=== PATIENT | female | born 1980 | race Caucasian/White ===

== ENCOUNTER 2018-05-02 16:34 | Emergency (ER) | payer OTHER, SELFPAY ==
--- NOTE | 2018-05-02 16:56 | ER ---
Nurse's Notes [facility] Name: Elsa Dash Age: 37 yrs Sex: Female : 1980 Arrival Date: 05/02/2018 Time: 16:36 Bed 25 Private MD: Diagnosis: Acute pharyngitis Presentation: 05/02 16:38 Presenting complaint: Patient states: i think i have strep throat, started yesterday, i tw2 can see swelling with white pockets. Transition of care: patient was not received from another setting of care. Onset of symptoms was May 02, 2018. Risk Assessment: Do you want to hurt yourself or someone else? Patient reports no desire to harm self or others. Initial Sepsis Screen: Does the patient meet any 2 criteria? No. Patient's initial sepsis screen is negative. Does the patient have a suspected source of infection? No. Patient's initial sepsis screen is negative. Care prior to arrival: None. 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 - Social history:: Smoking status: Patient/guardian denies using tobacco. - Ebola Screening: : Patient denies exposure to infectious person Patient denies travel to an Ebola-affected area in the 21 days before illness onset. Screenin:51 Abuse screen: Denies threats or abuse. Denies injuries from another. Nutritional ed1 screening: No deficits noted. Tuberculosis screening: No symptoms or risk factors identified. Fall Risk None identified. Assessment: 16:51 General: Appears uncomfortable, Behavior is calm, cooperative. Pain: Complains of pain ed1 in throat Pain does not radiate. Pain currently is 7 out of 10 on a pain scale. Quality of pain is described as burning, Pain began 1 day ago. Is continuous. Neuro: Level of Consciousness is awake, alert, obeys commands, Oriented to person, place, time, situation. Cardiovascular: Denies chest pain, Heart tones S1 S2 present. Respiratory: Airway is patent Respiratory effort is even, unlabored, Respiratory pattern is regular, symmetrical, Breath sounds are clear bilaterally. GI: No signs and/or symptoms were reported involving the gastrointestinal system. : No signs and/or symptoms were reported regarding the genitourinary system. EENT: Throat is reddened has enlarged tonsils bilaterally. Derm: Skin is intact, is healthy with good turgor, Skin is dry, Skin is normal, Skin temperature is warm. Musculoskeletal: Circulation, motion, and sensation intact. 16:55 Reassessment: I agree with previous assessment. hb 17:04 Reassessment: Patient appears in no apparent distress at this time. No changes from ed1 previously documented assessment. Patient and/or family updated on plan of care and expected duration. Pain level reassessed. Patient is alert, oriented x 3, equal unlabored respirations, skin warm/dry/pink. Vital Signs: 16:39 BP 144 / 77; Pulse 89; Resp 17; Temp 97.7(TE); Pulse Ox 98% on R/A; tw2 16:57 BP 133 / 92 RA Sitting (auto/reg); Pulse 77 MON; Resp 18 S; Pulse Ox 98% on R/A; jp3 17:04 BP 148 / 93; Pulse 86; Resp 17; Pulse Ox 100% on R/A; Pain 6/10; ed1 ED Course: 16:36 Patient arrived in ED. sb2 16:39 Triage completed. tw2 16:39 Arm band placed on. tw2 16:47 Strep Sent. tw2 16:50 Temitope Rachel LVN is Primary Nurse. ed1 16:51 Nithin Birch PA is PHCP. [facility] 16:51 Damian Pierre MD is Attending Physician. [facility] 16:51 Bed in low position. Call light in reach. Side rails up X 1. Warm blanket given. Pulse jp3 ox on. NIBP on. 16:58 Strep Sent. jp3 17:04 No provider procedures requiring assistance completed. Patient did not have IV access ed1 during this emergency room visit. Administered Medications: No medications were administered Outcome: 16:55 Discharge ordered by . [facility] 17:04 Discharged to home ambulatory. ed1 17:04 Condition: good 17:04 Discharge instructions given to patient, Instructed on discharge instructions, follow up and referral plans. medication usage, Demonstrated understanding of instructions, follow-up care, medications, Prescriptions given X 1. 17:05 Patient left the ED. ed1 Signatures: Nithin Birch PA PA jmm Riggs, Erika, COMMUNITY RESOURCE CONSULTANT COMMUNITY RESOURCE CONSULTANT ed1 Christy Armando RN RN Agnes Hightower RN RN tw2 Naomi Ayala sb2 Kleber Cook jp3
--- NOTE | 2018-05-02 16:56 | EDPHYS ---
Physician Documentation [facility] Name: Elsa Dash Age: 37 yrs Sex: Female : 1980 Arrival Date: 05/02/2018 Time: 16:36 Bed 25 Private MD: ED Physician Damian Pierre HPI: 05/02 16:54 This 37 yrs old Female presents to ER via Ambulatory with complaints of Sore jmm Throat. 16:54 The patient presents with sore throat. Onset: The symptoms/episode began/occurred jmm gradually, 1 day(s) ago. 16:54 Associated signs and symptoms: Pertinent positives: fever. jmm 16:54 Associated signs and symptoms: Pertinent negatives cough, diarrhea, headache. This is a jmm 37 year old female with a history of htn that presents to the ED with sore throat and fever beginning 1 day ago. . 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 - Social history:: Smoking status: Patient/guardian denies using tobacco. - Ebola Screening: : Patient denies exposure to infectious person Patient denies travel to an Ebola-affected area in the 21 days before illness onset. ROS: 16:54 Constitutional: Negative for fever, chills, and weight loss, Cardiovascular: Negative [facility] for chest pain, palpitations, and edema, Respiratory: Negative for shortness of breath, cough, wheezing, and pleuritic chest pain. 16:54 Abdomen/GI: Negative for abdominal pain, nausea, vomiting, diarrhea, and constipation, Back: Negative for injury and pain, MS/Extremity: Negative for injury and deformity. 16:54 Neuro: Negative for headache, weakness, numbness, tingling, and seizure. 16:54 ENT: Positive for sore throat. 16:54 Skin: Positive for rash. 16:54 All other systems are negative. Exam: 16:54 Head/Face: atraumatic. jmm 16:54 Constitutional: The patient appears in no acute distress, alert, awake. 16:54 ENT: TM's: are normal, Posterior pharynx: Uvula: normal, erythema, exudate, that is moderate, peritonsillar mass, is not appreciated. 16:54 Neck: Lymph nodes: lymphadenopathy is appreciated, anterior cervical nodes. 16:54 Cardiovascular: Rate: normal, Rhythm: regular, Pulses: no pulse deficits are appreciated. 16:54 Respiratory: the patient does not display signs of respiratory distress, Respirations: normal, Breath sounds: are clear throughout. 16:54 Abdomen/GI: Inspection: abdomen appears normal, Bowel sounds: normal, Palpation: soft, in all quadrants. 16:54 Skin: rash can be described as erythematous, on the chest. 16:54 Neuro: Orientation: is normal, Mentation: is normal, Memory: is normal. 16:54 Psych: Behavior/mood is pleasant, cooperative. Vital Signs: 16:39 BP 144 / 77; Pulse 89; Resp 17; Temp 97.7(TE); Pulse Ox 98% on R/A; tw2 16:57 BP 133 / 92 RA Sitting (auto/reg); Pulse 77 MON; Resp 18 S; Pulse Ox 98% on R/A; jp3 17:04 BP 148 / 93; Pulse 86; Resp 17; Pulse Ox 100% on R/A; Pain 6/10; ed1 MDM: 16:54 Patient medically screened. [facility] 16:55 Data reviewed: vital signs, nurses notes. Counseling: I had a detailed discussion with [facility] the patient and/or guardian regarding: the historical points, exam findings, and any diagnostic results supporting the discharge/admit diagnosis, the need for outpatient follow up, to return to the emergency department if symptoms worsen or persist or if there are any questions or concerns that arise at home. 05/02 16:39 Order name: Strep tw2 Administered Medications: No medications were administered Disposition: 18 16:55 Discharged to Home. Impression: Acute pharyngitis. - Condition is Stable. - Discharge Instructions: Pharyngitis. - Prescriptions for Amoxicillin 875 mg Oral Tablet - take 1 tablet by ORAL route every 12 hours for 10 days; 20 tablet. - Medication Reconciliation Form, Thank You Letter, Antibiotic Education, Prescription Opioid Use form. - Follow up: Private Physician; When: 2 - 3 days; Reason: Recheck today's complaints, Continuance of care, Re-evaluation by your physician. Addendum: 05/04/2018 15:36 Co-signature as Attending Physician, Damian Pierre MD. g s Signatures: Dispatcher [employer] EDMS Nithin Birch, KEN PA aparnam Temitope Rachel, SUB PRIOR SUB PRIOR ed1 Agnes Hightower, RN RN tw2 Damian Pierre MD MD Corrections: (The following items were deleted from the chart) 05/02 17:05 16:55 05/02/2018 16:55 Discharged to Home. Impression: Acute pharyngitis. Condition is ed1 Stable. Forms are Medication Reconciliation Form, Thank You Letter, Antibiotic Education, Prescription Opioid Use. Follow up: Private Physician; When: 2 - 3 days; Reason: Recheck today's complaints, Continuance of care, Re-evaluation by your physician. aleisha
== END 2018-05-02 17:05 | disposition home or self-care (01) ==
LOC: ER 16:34
DX: J02.9 Acute pharyngitis, unspecified (principal); I10 Essential (primary) hypertension; F41.9 Anxiety disorder, unspecified
CPT/HCPCS: 87081; 99283

== ENCOUNTER 2020-06-24 18:55 | Emergency (ER) | payer SELFPAY ==
[2020-06-24 19:29] LABS: Absolute Lymphocytes (CBC) 2.4 K/uL (0.7-4.9); Basophils % 0.9 % (0-1.3); Hematocrit 40.1 % (36.0-45.0); Lymphocytes % 27.9 % (15.3-44.8); RBC Red Blood Cell Count 4.51 M/uL (3.86-4.86)
[2020-06-24 19:30] LABS: Urine Blood TRACE (NEG); Urine Glucose NEGATIVE (NEG); Urine Protein 2+ (NEG); Urine Specific Gravity 1.015 (1.005-1.030)
[2020-06-24] MEDS ORDERED: MAGNE/ALUM HYDROXD 30 ML UCUP ONE ×2 (19:45→23:03)
[2020-06-24] MEDS ORDERED: LIDOCAINE VISCOUS 2% SOLN 15 ML UDC ONE ×2 (19:45→23:03)
[2020-06-24 19:51] LABS: Albumin 4.4 g/dL (3.4-5.0); Bilirubin Direct 0.1 mg/dL (0-0.2); Bilirubin Total 0.3 mg/dL (0.2-1.0); Protein, Total 8.6 g/dL (6.4-8.2)
[2020-06-24 20:08] LABS: Potassium 2.9 mmol/L (3.5-5.1)
[2020-06-24] MEDS ORDERED: POTASSIUM 25 MEQ EFFERV TAB ONE (20:22)
[2020-06-24] MEDS ORDERED: NA CHLORIDE 0.9% 1,000 ML ONE (20:22)
--- NOTE | 2020-06-24 22:12 | EDPHYS ---
Physician Documentation [facility] Name: Elsa Dash Age: 39 yrs Sex: Female : 1980 Arrival Date: 06/24/2020 Time: 18:56 Bed 8 Private MD: ED Physician Martin Sterling HPI: 06/24 19:27 This 39 yrs old Female presents to ER via Ambulatory with complaints of tw4 Epigastric Pain. 19:27 The patient presents with abdominal pain. Onset: The symptoms/episode began/occurred 2 tw4 week(s) ago. The symptoms do not radiate. Associated signs and symptoms: none. The symptoms are described as sharp. Modifying factors: The symptoms are alleviated by nothing, the symptoms are aggravated by nothing. The patient has not experienced similar symptoms in the past. 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 - Social history:: Smoking status: Patient denies any tobacco usage or history of. ROS: 19:27 Constitutional: Negative for fever, chills, and weight loss, Eyes: Negative for injury, tw4 pain, redness, and discharge, Cardiovascular: Negative for chest pain, palpitations, and edema, Respiratory: Negative for shortness of breath, cough, wheezing, and pleuritic chest pain, Back: Negative for injury and pain, MS/Extremity: Negative for injury and deformity, Skin: Negative for injury, rash, and discoloration. 19:27 Abdomen/GI: Positive for abdominal pain, Negative for nausea and vomiting, nausea, vomiting, and diarrhea, nausea, abdominal cramps, abdominal distension, anorexia, dysphagia, hematemesis, black/tarry stool, rectal pain. Exam: 19:27 Constitutional: This is a well developed, well nourished patient who is awake, alert, tw4 and in no acute distress. Head/Face: Normocephalic, atraumatic. Chest/axilla: Normal chest wall appearance and motion. Nontender with no deformity. No lesions are appreciated. Cardiovascular: Regular rate and rhythm with a normal S1 and S2. No gallops, murmurs, or rubs. Normal PMI, no JVD. No pulse deficits. Respiratory: Lungs have equal breath sounds bilaterally, clear to auscultation and percussion. No rales, rhonchi or wheezes noted. No increased work of breathing, no retractions or nasal flaring. 19:27 Skin: Warm, dry with normal turgor. Normal color with no rashes, no lesions, and no evidence of cellulitis. MS/ Extremity: Pulses equal, no cyanosis. Neurovascular intact. Full, normal range of motion. 19:27 Abdomen/GI: Inspection: abdomen appears normal, Bowel sounds: normal, Palpation: moderate abdominal tenderness. Vital Signs: 19:02 BP 163 / 115; Pulse 104; Resp 18 S; Temp 98.5(O); Pulse Ox 99% on R/A; Weight 106.14 kg aa5 (R); Height 5 ft. 8 in. (172.72 cm) (R); Pain 6/10; 20:04 BP 171 / 110; Pulse 84; Resp 18; Pulse Ox 99% on R/A; ll2 21:00 BP 175 / 105; Pulse 82; Resp 16; Pulse Ox 99% ; rr5 22:00 BP 166 / 96; Pulse 76; Resp 18; Pulse Ox 98% ; rr5 23:00 BP 162 / 85; Pulse 70; Resp 16; Pulse Ox 99% ; rr5 19:02 Body Mass Index 35.58 (106.14 kg, 172.72 cm) aa5 MDM: 19:04 Patient medically screened. tw4 22:10 Data reviewed: vital signs, nurses notes. Data interpreted: Pulse oximetry: tw4 Interpretation: normal. Counseling: I had a detailed discussion with the patient and/or guardian regarding: the historical points, exam findings, and any diagnostic results supporting the discharge/admit diagnosis, lab results. Medication response: GI Cocktail relieved the patient's pain. The symptoms have resolved. Response to treatment: and as a result, I will discharge patient. Special discussion: Based on the patient's Hx, exam, and Dx evaluation, there is no indication for emergent surgery or inpatient Tx. It is understood by the patient/guardian that if the Sx's persist or worsen they need to return immediately for re-evaluation. I discussed with the patient/guardian in detail that at this point there is no indication for admission to the hospital. It is understood, however, that if the symptoms persist or worsen the patient needs to return immediately for re-evaluation. 06/24 19:05 Order name: Basic Metabolic Panel; Complete Time: 20:15 [facility] 06/24 20:15 Interpretation: Normal except: K 2.9; GLUC 144; GFR 67. tw4 06/24 19:05 Order name: CBC with Diff; Complete Time: 20:15 [facility] 06/24 20:15 Interpretation: Normal except: MCV 88.9. tw06/24 19:05 Order name: Hepatic Function; Complete Time: 20:15 [facility] 06/24 20:15 Interpretation: Normal except: ALK 122; TP 8.6; GLOB 4.2; A/G 1.0. [facility] 06/24 19:05 Order name: Lipase; Complete Time: 20:15 [facility] 06/24 20:16 Interpretation: Within normal limits: LIP 103. tw4 06/24 19:26 Order name: Urine Dipstick--Ancillary (enter results); Complete Time: 20:15 [facility] 06/24 20:15 Interpretation: Normal except: UBLD TRACE; UPROT 2+. 06/24 19:26 Order name: Urine --Ancillary (enter results); Complete Time: 20:15 [facility] 06/24 19:05 Order name: IV Saline Lock; Complete Time: 19:28 [facility] 06/24 19:05 Order name: Labs collected and sent; Complete Time: 19:28 [facility] 06/24 19:28 Order name: Urine Dipstick-Ancillary (obtain specimen); Complete Time: 19:28 5 06/24 19:28 Order name: Urine Test (obtain specimen); Complete Time: 19:28 rr5 Administered Medications: 19:47 Drug: GI Cocktail without - (Maalox Suspension 30 ml, Lidocaine Liquid 2 % 15 rr5 ml) Route: PO; 22:45 Follow up: Response: No adverse reaction rr5 20:17 Drug: Potassium Effervescent Tablet 50 mEq Route: PO; rr5 22:45 Follow up: Response: No adverse reaction rr5 20:17 Drug: NS 0.9% 1000 ml Route: IV; Rate: 1 bolus; Site: right antecubital; rr5 21:15 Follow up: Response: No adverse reaction; IV Status: Completed infusion; IV Intake: rr5 1000ml Disposition: 06/24/20 22:11 Discharged to Home. Impression: Gastritis, unspecified, without bleeding, Hypokalemia. - Condition is Stable. - Discharge Instructions: Gastritis, Adult, Hypokalemia. - Prescriptions for Protonix 40 mg Oral Tablet - take 1 tablet by ORAL route once daily; 30 tablet. - Medication Reconciliation Form, Thank You Letter, Antibiotic Education, Prescription Opioid Use form. - Follow up: Private Physician; When: Upon discharge from the Emergency Department; Reason: Recheck today's complaints, Continuance of care, Re-evaluation by your physician. - Problem is new. - Symptoms have improved. Signatures: Dispatcher [employer] EDMS Divina Busby RN RN aa5 Martin Sterling MD MD tw4 Ole West RN RN rr5 Aleida Moss RN RN ll2 Corrections: (The following items were deleted from the chart) 19:05 19:02 PSHx: None; aa5 aa5 23:07 19:02 Home Meds: amlodipine 10 mg tab 1 tab once daily; aa5 ll2 23:07 19:02 Home Meds: alprazolam 1 mg oral tab twice a day; aa5 ll2 23:07 19:02 Home Meds: Adipex-P oral oral; 5 ll2 23:07 19:02 PMHx: Anxiety; aa5 ll2 23:07 19:02 PMHx: Hypertension; aa5 ll2 23:07 19:05 PSHx: Right ovary removed; aa5 ll2 23:08 22:11 06/24/2020 22:11 Discharged to Home. Impression: Gastritis, unspecified, without ll2 bleeding; Hypokalemia. Condition is Stable. Forms are Medication Reconciliation Form, Thank You Letter, Antibiotic Education, Prescription Opioid Use. Follow up: Private Physician; When: Upon discharge from the Emergency Department; Reason: Recheck today's complaints, Continuance of care, Re-evaluation by your physician. Problem is new. Symptoms have improved. tw4
--- NOTE | 2020-06-24 22:12 | ER ---
Nurse's Notes [facility] Name: Elsa Dash Age: 39 yrs Sex: Female : 1980 Arrival Date: 06/24/2020 Time: 18:56 Bed 8 Private MD: Diagnosis: Gastritis, unspecified, without bleeding;Hypokalemia Presentation: 06/24 19:02 Chief complaint: Patient states: upper abd pain that began 1 week ago. Pt states "I was aa5 having diarrhea 1 week ago but not anymore". Pt denies vomiting. Coronavirus screen: Client denies travel out of the [place] in the last 14 days. At this time, the client does not indicate any symptoms associated with coronavirus-19. Ebola Screen: Patient negative for fever greater than or equal to 101.5 degrees Fahrenheit, and additional compatible Ebola Virus Disease symptoms. Initial Sepsis Screen: Does the patient meet any 2 criteria? No. Patient's initial sepsis screen is negative. Does the patient have a suspected source of infection? No. Patient's initial sepsis screen is negative. Risk Assessment: Do you want to hurt yourself or someone else? Patient reports no desire to harm self or others. Onset of symptoms was 2020. 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 - Social history:: Smoking status: Patient denies any tobacco usage or history of. Screenin:29 Abuse screen: Denies threats or abuse. Denies injuries from another. Nutritional rr5 screening: No deficits noted. Tuberculosis screening: No symptoms or risk factors identified. Fall Risk IV access (20 points). Total [place] Fall Scale indicates No Risk (0-24 pts). Assessment: 19:30 General: Appears in no apparent distress. uncomfortable, Behavior is calm, cooperative, rr5 appropriate for age. Pain: Complains of pain in epigastric area Pain currently is 8 out of 10 on a pain scale. Quality of pain is described as aching, Pain began gradually, Is intermittent. Neuro: Level of Consciousness is awake, alert, obeys commands, Oriented to person, place, time, situation. Cardiovascular: Capillary refill < 3 seconds Patient's skin is warm and dry. Respiratory: Airway is patent Respiratory effort is even, unlabored, Respiratory pattern is regular, agonal. GI: Abdomen is round Reports upper abdominal pain, diarrhea. : No signs and/or symptoms were reported regarding the genitourinary system. EENT: No signs and/or symptoms were reported regarding the EENT system. Derm: Skin is intact, is healthy with good turgor, Skin temperature is warm. Musculoskeletal: Circulation, motion, and sensation intact. Capillary refill < 3 seconds. 20:15 Reassessment: Patient appears in no apparent distress at this time. K 2.9 laboratory rr5 staff called, ED provider aware with order made and carried out. 21:10 Reassessment: Patient appears in no apparent distress at this time. Patient and/or rr5 family updated on plan of care and expected duration. Pain level reassessed. Patient is alert, oriented x 3, equal unlabored respirations, skin warm/dry/pink. 22:00 Reassessment: Patient appears in no apparent distress at this time. Patient is alert, rr5 oriented x 3, equal unlabored respirations, skin warm/dry/pink. 23:00 Reassessment: Patient appears in no apparent distress at this time. Patient is alert, rr5 oriented x 3, equal unlabored respirations, skin warm/dry/pink. discharge instruction given and explained without complaints made. Vital Signs: 19:02 BP 163 / 115; Pulse 104; Resp 18 S; Temp 98.5(O); Pulse Ox 99% on R/A; Weight 106.14 kg aa5 (R); Height 5 ft. 8 in. (172.72 cm) (R); Pain 6/10; 20:04 BP 171 / 110; Pulse 84; Resp 18; Pulse Ox 99% on R/A; ll2 21:00 BP 175 / 105; Pulse 82; Resp 16; Pulse Ox 99% ; rr5 22:00 BP 166 / 96; Pulse 76; Resp 18; Pulse Ox 98% ; rr5 23:00 BP 162 / 85; Pulse 70; Resp 16; Pulse Ox 99% ; rr5 19:02 Body Mass Index 35.58 (106.14 kg, 172.72 cm) aa5 ED Course: 18:56 Patient arrived in ED. as 19:00 Arm band placed on. aa5 19:04 Triage completed. aa5 19:04 Martin Sterling MD is Attending Physician. tw4 19:05 Ole West, RN is Primary Nurse. rr5 19:20 Inserted saline lock: 20 gauge in right antecubital area, using aseptic technique. rr5 Blood collected. 19:29 Patient has correct armband on for positive identification. Bed in low position. Call rr5 light in reach. Pulse ox on. NIBP on. 19:30 Urine collected: clean catch specimen, clear. rr5 23:07 No provider procedures requiring assistance completed. IV discontinued, intact, ll2 bleeding controlled, No redness/swelling at site. Pressure dressing applied. Administered Medications: 19:47 Drug: GI Cocktail without - (Maalox Suspension 30 ml, Lidocaine Liquid 2 % 15 rr5 ml) Route: PO; 22:45 Follow up: Response: No adverse reaction rr5 20:17 Drug: Potassium Effervescent Tablet 50 mEq Route: PO; rr5 22:45 Follow up: Response: No adverse reaction rr5 20:17 Drug: NS 0.9% 1000 ml Route: IV; Rate: 1 bolus; Site: right antecubital; rr5 21:15 Follow up: Response: No adverse reaction; IV Status: Completed infusion; IV Intake: rr5 1000ml Intake: 21:15 IV: 1000ml; Total: 1000ml. rr5 Outcome: 22:11 Discharge ordered by . tw4 23:07 Discharged to home ambulatory. ll2 23:07 Condition: stable 23:07 Discharge instructions given to patient, Instructed on discharge instructions, follow up and referral plans. medication usage, Demonstrated understanding of instructions, follow-up care, medications, Prescriptions given X 1. 23:08 Patient left the ED. ll2 Signatures: Cecily Rae Audri, RN RN aa5 Martin Sterling MD MD [facility] Ole West, RN RN rr5 Aleida Moss RN RN ll2 Corrections: (The following items were deleted from the chart) 19: 19:02 PSHx: None; [place] [id number] 19:02 Home Meds: amlodipine 10 mg tab 1 tab once daily; [place] [id number] 19:02 Home Meds: alprazolam 1 mg oral tab twice a day; [place] [id number] 19:02 Home Meds: Adipex-P oral oral; [place] [id number] 19:02 PMHx: Anxiety; [place] [id number] 19:02 PMHx: Hypertension; [place] [id number] 19:05 PSHx: Right ovary removed; [facility]
[2020-06-24] MEDS ORDERED: PANTOPRAZOLE 40 MG INJ ONE (23:03)
[2020-06-24 23:17] VITALS: TEMP 98.5; O2SAT 99
[2020-06-24 23:18] VITALS: BP 171/110
== END 2020-06-24 23:08 | disposition home or self-care (01) ==
LOC: ER 18:55
DX: K29.70 Gastritis, unspecified, without bleeding (principal); E87.6 Hypokalemia; I10 Essential (primary) hypertension; F41.9 Anxiety disorder, unspecified
CPT/HCPCS: 36415; 80048; 80076; 81003; 81025; 83690; 85025; 96360; 99284; C9113; J7030

== ENCOUNTER → 2023-11-26 | Emergency (ER) | payer OTHER, SELFPAY ==
[~2023-11-26] MED LIST: ACETAMINOPHEN 500 MG TAB ONE; DIAZEPAM 5 MG TABLET ONE; KETOROLAC 30 MG/ML INJ ONE; LIDOCAINE 4% PATCH ONE; predniSONE 20 MG TAB ONE
--- NOTE | 2023-11-26 15:48 | RAD REPORT ---
EXAM DESCRIPTION: CTSpine Lumbar Wo Con11/26/2023 3:25 pm CLINICAL HISTORY: Difficulty walking. Back pain COMPARISON: None TECHNIQUE: Computed axial tomography lumbar spine was obtained with coronal and sagittal reconstruct ion. All CT scans are performed using dose optimization technique as appropriate and may include automated exposure control or mA/KV adjustment according to patient size. FINDINGS: No fracture is seen. No dislocation is noted. Equivocal small left lateral disc herniations L2-3 and L4-5. Disc bulge L5-S1. No high-grade central/foraminal stenosis visualized Tiny renal calculi IMPRESSION: Negative for a lumbar fracture. No high-grade central/foraminal stenosis visualize Equivocal small left lateral disc herniations L2-3 and L4-5 If patient's symptoms persist MRI could be obtained for further evaluation
--- NOTE | 2023-11-26 17:06 | ER ---
Nurse's Notes [facility] Name: Elsa Dash Age: 43 yrs Sex: Female : 1980 Arrival Date: 11/26/2023 Time: 14:39 Bed 11 Private MD: Diagnosis: Sciatica Presentation: 11/25 15:05 Coronavirus screen: Vaccine status: Patient reports receiving the 2nd dose of the covid kd3 vaccine. Ebola Screen: No symptoms or risks identified at this time. 15:05 Method Of Arrival: Wheelchair kd3 15:05 Initial Sepsis Screen: Does the patient meet any 2 criteria? No. Patient's initial kd3 sepsis screen is negative. Does the patient have a suspected source of infection? No. Patient's initial sepsis screen is negative. Risk Assessment: Do you want to hurt yourself or someone else? Patient reports no desire to harm self or others. Onset of symptoms. 15:06 Chief complaint: Patient states: I woke up yesterday morning and i could barely walk. I kd3 have had a tailbone fracture in the past. It hurts right in my tailbone/ back area. I can barely walk due to the pain. When i sit still, it doesn't hurt much. The only thing i can think of that might have hurt it was walking my dog. The dog took off and jerked me on the leash but i didn't feel any pain at the exact moment. 15:06 Acuity: YAHIR 4 kd3 Triage Assessment: 15:06 General: Appears uncomfortable, Behavior is calm, cooperative. Pain: Complains of pain kd3 in sacrum, left low back and right low back. 15:06 Neuro: Level of Consciousness is awake, alert, obeys commands, Oriented to person, kd3 place, time, situation. Musculoskeletal: Circulation, motion, and sensation intact. Historical: - Allergies: 15:06 No Known Allergies; kd3 - PMHx: 15:06 Anxiety; Hypertension; kd3 - Immunization history:: Adult Immunizations up to date. - Social history:: Smoking status: Reported history of juuling and/or vaping. Screenin:15 [facility] ED Fall Risk Assessment (Adult) History of falling in the last 3 months, ph including since admission No falls in past 3 months (0 pts) Confusion or Disorientation No (0 pts) Intoxicated or Sedated No (0 pts) Impaired Gait No (0 pts) Mobility Assist Device Used No (0 pt) Altered Elimination No (0 pt). Abuse screen: Denies threats or abuse. Denies injuries from another. Nutritional screening: No deficits noted. Tuberculosis screening: No symptoms or risk factors identified. Assessment: 17:15 General: Appears in no apparent distress. uncomfortable, Behavior is calm, cooperative. ph Pain: Complains of pain in back Pain radiates to right low back and left low back. Neuro: Level of Consciousness is awake, alert, obeys commands, Oriented to person, place, time, situation. Cardiovascular: Capillary refill < 3 seconds in bilateral fingers Patient's skin is warm and dry. Respiratory: Airway is patent Respiratory effort is even, unlabored, Respiratory pattern is regular, symmetrical. Musculoskeletal: Reports pain in left low back and sacrum and right low back. Vital Signs: 15:04 BP 165 / 109; Pulse 79; Resp 16; Temp 98.2(O); Pulse Ox 95% ; Weight 101.6 kg; Height 5 kd3 ft. 8 in. ; Pain 10/10; 17:30 BP 141 / 89; Pulse 72; Resp 18; Pulse Ox 98% on R/A; ph 15:04 Body Mass Index 34.06 (101.60 kg, 172.72 cm) kd3 15:04 Pain Scale: Adult kd3 ED Course: 14:41 Patient arrived in ED. ra3 14:42 Ben Grubbs MD is Attending Physician. ec2 15:08 Triage completed. kd3 15:09 Arm band placed on right wrist. kd3 15:26 CT Lumbar Spine Wo Con In Process Unspecified. EDMS 17:00 Patient has correct armband on for positive identification. Door closed. Noise ph minimized. 17:26 Blanca Torres, RN is Primary Nurse. ph 17:38 No provider procedures requiring assistance completed. Patient did not have IV access ph during this emergency room visit. Administered Medications: 16:46 Drug: Ketorolac IM 30 mg IM once Route: IM; Site: right deltoid; as6 17:00 Follow up: Response: No adverse reaction ph 16:46 Drug: Lidoderm Topical Patch 5 % (700 mg/patch) 1 patches Topical once; leave on for 12 as6 hours; cover most painful area; may cut into smaller pieces Route: Topical; Site: affected area; 17:00 Follow up: Response: No adverse reaction ph 16:46 Drug: Acetaminophen PO 1000 mg PO once Route: PO; as6 17:00 Follow up: Response: No adverse reaction ph 16:46 Drug: Diazepam PO 10 mg PO once Route: PO; as6 19:06 Follow up: Response: No adverse reaction ph 16:46 Drug: predniSONE PO 40 mg PO once Route: PO; as6 19:06 Follow up: Response: No adverse reaction ph Medication: 19:04 VIS not applicable for this client. ph Outcome: 17:05 Discharge ordered by . suzie 17:38 Patient left the ED. ph 17:38 Discharged to home ambulatory, with family, ph 17:38 Condition: good 17:38 Discharge instructions given to patient, family, Instructed on discharge instructions, follow up and referral plans. medication usage, Demonstrated understanding of instructions, follow-up care, medications, Prescriptions given X 2, Signatures: Dispatcher [employer] Blanca Pacheco RN RN Dorian Marie RN RN as6 Mariposa Savage RN RN kd3 Ben Grubbs MD MD ec2 Patricia Ritchie ra3
--- NOTE | 2023-11-26 17:06 | EDPHYS ---
Physician Documentation [facility] Name: Elsa Dash Age: 43 yrs Sex: Female : 1980 Arrival Date: 11/26/2023 Time: 14:39 Bed 11 Private MD: ED Physician Ben Grubbs HPI: 11/25 15:12 This 43 yrs old Female presents to ER via Wheelchair with complaints of Low ec2 Back Pain, Trouble Walking. 15:12 Patient arrives today for evaluation of low back pain. Patient complaining of 2 days of ec2 low back pain, states that the pain radiates into the right buttock. Patient reports no falls or injuries or trauma, reports no history of previous tailbone injury. Patient reports no saddle anesthesia, no urinary retention or incontinence, no bowel issues. Patient reports pain with movement. Has taken Tylenol with minimal alleviation in symptoms.. Historical: - Allergies: 15:06 No Known Allergies; kd3 - PMHx: 15:06 Anxiety; Hypertension; kd3 - Immunization history:: Adult Immunizations up to date. - Social history:: Smoking status: Reported history of juuling and/or vaping. ROS: 15:12 Constitutional: as per hpi ec2 Exam: 15:12 Constitutional: GEN: NAD Head: atraumatic Eyes: EOMI Ears: External ears are ec2 normal. CV: regular rate LUNGS: no respiratory distress ABD: non-distended SKIN: no evidence of rashes MSK: no evidence of trauma, no C/T spine deformities or TTP. L-spine with right low TTP, no deformities or crepitus appreciated. Positive straight leg raise test on the right lower extremity. NEURO: moves all extremities equally Vital Signs: 15:04 BP 165 / 109; Pulse 79; Resp 16; Temp 98.2(O); Pulse Ox 95% ; Weight 101.6 kg; Height 5 kd3 ft. 8 in. ; Pain 10/10; 17:30 BP 141 / 89; Pulse 72; Resp 18; Pulse Ox 98% on R/A; ph 15:04 Body Mass Index 34.06 (101.60 kg, 172.72 cm) kd3 15:04 Pain Scale: Adult kd3 MDM: 15:10 Patient medically screened. ec2 15:12 Data reviewed: vital signs. ED course: Patient arrives today for evaluation of right ec2 low back pain. Examination remarkable for MSK findings as noted above. Will obtain CT of the L-spine, treat the patient's symptoms and reassess. Currently suspect sciatica, doubt bony fracture, doubt spinal cord pathology. Will defer any more advanced imaging such as MRI. . 15:58 ED course: CT of the L-spine shows herniated disc, no bony fracture, no significant ec2 spinal cord pathology. Will proceed with sciatica management and have her follow with primary care doctor. . 11/25 15:12 Order name: CT Lumbar Spine Wo Con; Complete Time: 15:53 ec2 Administered Medications: 16:46 Drug: Ketorolac IM 30 mg IM once Route: IM; Site: right deltoid; as6 17:00 Follow up: Response: No adverse reaction ph 16:46 Drug: Lidoderm Topical Patch 5 % (700 mg/patch) 1 patches Topical once; leave on for 12 as6 hours; cover most painful area; may cut into smaller pieces Route: Topical; Site: affected area; 17:00 Follow up: Response: No adverse reaction ph 16:46 Drug: Acetaminophen PO 1000 mg PO once Route: PO; as6 17:00 Follow up: Response: No adverse reaction ph 16:46 Drug: Diazepam PO 10 mg PO once Route: PO; as6 19:06 Follow up: Response: No adverse reaction ph 16:46 Drug: predniSONE PO 40 mg PO once Route: PO; as6 19:06 Follow up: Response: No adverse reaction ph Disposition Summary: 11/26/23 17:05 Discharge Ordered Notes: Location: Home ec2 Condition: Stable ec2 Diagnosis - Sciatica ec2 Followup: ec2 - With: Private Physician - When: - Reason: Re-evaluation by your physician Discharge Instructions: - Discharge Summary Sheet ec2 - Sciatica, [id number] ec2 Forms: - Work release form ph - Medication Reconciliation Form ec2 - Thank You Letter ec2 - Antibiotic Education ec2 - Prescription Opioid Use ec2 - Patient Portal Instructions ec2 - Leadership Thank You Letter ec2 Prescriptions: - Prednisone 20 mg Oral Tablet - take 1 tablet ORAL route once daily for 5 days; 5 tablet; Refills: 0, Product ec2 Selection Permitted - methocarbamol 500 mg Oral tablet - take 2 tablets ORAL route 4 times per day; 30 tablet; Refills: 0, Product ec2 Selection Permitted Signatures: Dispatcher [employer] Dorian Fatima RN RN as6 Mariposa Savage RN RN kd3 Ben Grubbs MD MD ec2 Blanca Torres RN ph
[2023-11-26 18:16] VITALS: BP 165/109; TEMP 98.2; O2SAT 95
== END ==
LOC: ER 14:39
DX: M54.31 Sciatica, right side (principal)
CPT/HCPCS: 72131; J7512; J2001; 96372; 99284

== ENCOUNTER 2025-06-20 09:28 | Emergency (ER) | payer OTHER ==
[2025-06-20] MEDS ORDERED: ONDANSETRON 4 MG/2 ML VIAL ONE (10:04)
[2025-06-20] MEDS ORDERED: MORPHINE 4 MG/ML SYR ONE (10:05)
[2025-06-20] MEDS ORDERED: NA CHLORIDE 0.9% 1,000 ML ONE (10:05)
[2025-06-20 10:06] LABS: Absolute Lymphocytes (CBC) 1.7 K/uL (0.7-4.9); Hematocrit 39.9 % (36.0-45.0); Hemoglobin 13.4 g/dL (12.0-15.0); MCH 27.9 pg (27.0-35.0); MCHC 33.5 g/dL (32.0-36.0); MCV 83.2 fL (80-100); MPV 9.5 fL (7.6-11.3); Nucleated RBC Absolute Count 0.0 (0-0); Nucleated Red Blood Cells % 0.1 % (0-0); RBC Red Blood Cell Count 4.80 M/uL (3.86-4.86); White Blood Count 7.60 thou/uL (4.3-10.9)
[2025-06-20 10:29] LABS: ALT/SGPT 119.0 U/L (13-56); AST/SGOT 77.0 U/L (15-37); Albumin 3.7 g/dL (3.4-5.0); Albumin/Globulin Ratio 0.9 (1.1-1.8); Alkaline Phosphatase 113.0 U/L (45-117); Anion Gap 10.7 mEq/L (5.0-15.0); BUN Blood Urea Nitrogen 19.0 mg/dL (7-18); Globulin 4.1 g/dL (2.3-3.5); Glucose Level 138.0 mg/dL (74-106); Lipase 26.0 U/L (13-75); Potassium 3.7 mEq/L (3.5-5.1)
[2025-06-20 10:39] LABS: Urine Culture Reflex Order NOT NEEDED; Urine Microscopic Reflex YN ORDER UMIC
--- NOTE | 2025-06-20 11:22 | RAD REPORT ---
EXAMINATION: CT ABDOMEN AND PELVIS WITH CONTRAST CLINICAL INDICATION: Abdominal pain TECHNIQUE: CT abdomen and pelvis was performed, after the administration of 100 cc Isovue-300.. Sagit heike and coronal reconstructions were obtained. One or more of the following dose reduction techniques were used: Automated exposure control, adjustment of the mA and kV according to patient si ze, and iterative reconstruction. Unless otherwise specified, incidental findings do not require dedicated imaging follow-up. [id number]. Oral contrast was not given which limits evaluation of bowel and appendix. COMPARISON: .2013 FINDINGS: Mild hepatomegaly. Fatty liver. Spleen, pancreas, adrenals and left kidney unremarkable. Tiny bilateral renal calculi. Minimal left hydronephrosis. 1.5 cm simple appearing right renal cyst. No follow-up recommended. Normal appendix. No adnexal mass. No evidence of diverticulitis. : IMPRESSION: Mild hepatomegaly with fatty infiltration Tiny nonobstructing renal calculi Minimal left hydronephrosis. An obstructing ureteral calculus is not visualized.
--- NOTE | 2025-06-20 11:58 | ER ---
Nurse's Notes [facility] Name: Elsa Dash Age: 44 yrs Sex: Female : 1980 Arrival Date: 06/20/2025 Time: 09:28 Bed 19 Private MD: Diagnosis: Upper abdominal pain, unspecified Presentation: 06/20 09:40 Chief complaint: Patient states: abd pain started yesterday , pain radiates to the left iw side and suprapubic area. Coronavirus screen: At this time, the client does not indicate any symptoms associated with coronavirus-19. Ebola Screen: No symptoms or risks identified at this time. Initial Sepsis Screen: Does the patient meet any 2 criteria? No. Patient's initial sepsis screen is negative. Does the patient have a suspected source of infection? No. Patient's initial sepsis screen is negative. Risk Assessment: Do you want to hurt yourself or someone else? Patient reports no desire to harm self or others. Onset of symptoms was June 19, 2025. 09:40 Method Of Arrival: Ambulatory iw 09:40 Acuity: YAHIR 3 iw Historical: - Allergies: 09:41 No Known Allergies; iw - PMHx: 09:41 Anxiety; Hypertension; GERD; iw - Immunization history:: Adult Immunizations unknown. - Infectious Disease History:: Denies. - Social history:: Smoking status: unknown. Screenin:13 [facility] ED Fall Risk Assessment (Adult) History of falling in the last 3 months, db including since admission No falls in past 3 months (0 pts) Confusion or Disorientation No (0 pts) Intoxicated or Sedated No (0 pts) Impaired Gait No (0 pts) Mobility Assist Device Used No (0 pt) Altered Elimination No (0 pt) Score/Fall Risk Level 0 - 2 = Low Risk Oriented to surroundings, Maintained a safe environment. Abuse screen: Denies threats or abuse. Denies injuries from another. Nutritional screening: No deficits noted. Tuberculosis screening: No symptoms or risk factors identified. Assessment: 09:38 Reassessment: Patient appears in no apparent distress at this time. Patient and/or db family updated on plan of care and expected duration. Pain level reassessed. Patient is alert, oriented x 3, equal unlabored respirations, skin warm/dry/pink. General: Appears in no apparent distress. comfortable, Behavior is calm, cooperative. Pain: Complains of pain in abdomen. Neuro: Level of Consciousness is awake, alert, obeys commands, Oriented to person, place, time, situation. Respiratory: Airway is patent Respiratory effort is even, unlabored, Respiratory pattern is regular, symmetrical. 11:31 Reassessment: PT AMBULATORY TO RESTROOM. db 12:13 Reassessment: Patient appears in no apparent distress at this time. Patient and/or db family updated on plan of care and expected duration. Pain level reassessed. Patient is alert, oriented x 3, equal unlabored respirations, skin warm/dry/pink. Patient states feeling better. Patient states symptoms have improved. Vital Signs: 09:40 Pulse 81; Resp 18; Pulse Ox 96% on R/A; iw 10:30 BP 197 / 101; Pulse 81; Resp 16; Temp 98; Pulse Ox 98% ; db 11:40 BP 171 / 101; Pulse 87; Resp 16; Pulse Ox 97% on R/A; db 12:00 BP 164 / 95; Pulse 86; Resp 16; Pulse Ox 95% ; db ED Course: 09:31 Patient arrived in ED. ts1 09:32 Jduith Lira PA-C is PHCP. sb4 09:32 Anthony Scott MD is Attending Physician. sb4 09:38 Miguelina Zaragoza, RN is Primary Nurse. db 09:41 Triage completed. iw 09:41 Arm band placed on. iw 10:00 Initial lab(s) drawn, by me, sent to lab. Missed attempt(s): 20 gauge in right db antecubital area. Bleeding controlled, band aid applied, catheter tip intact. 10:33 Patient has correct armband on for positive identification. Bed in low position. Call db light in reach. Side rails up X 1. 10:59 CT Abd/Pelvis - IV Contrast Only In Process Unspecified. EDMS 11:57 Vitaliy Montes MD is Referral Physician. sb4 12:13 Provided Education on: DISCHARGE . Pulse ox on. NIBP on. db 12:13 No provider procedures requiring assistance completed. IV discontinued, intact, db bleeding controlled, No redness/swelling at site. Administered Medications: 10:15 Drug: Ondansetron IVP 4 mg IVP once; over 2 minutes Route: IVP; Site: left antecubital; db 12:15 Follow up: Response: No adverse reaction db 10:15 Drug: morphine IVP or IV 4 mg IVP once over 4 mins Route: IVP; Infused Over: 4 mins; db Site: left antecubital; 12:15 Follow up: Response: No adverse reaction db 10:15 Drug: NS 0.9% IV 1000 ml IV at 1 bolus Per protocol; to be given as a bolus over 60 db minutes Route: IV; Rate: 1 bolus; Site: left antecubital; 12:15 Follow up: Response: No adverse reaction; IV Status: Completed infusion; IV Intake: db 1000ml Medication: 12:13 VIS not applicable for this client. db Intake: 12:15 IV: 1000ml; Total: 1000ml. db Outcome: 11:57 Discharge ordered by MD. kwon 12:13 Discharged to home ambulatory, db 12:13 Condition: stable 12:13 Discharge instructions given to patient, Instructed on discharge instructions, follow up and referral plans. 12:15 Patient left the ED. db Signatures: Dispatcher [employer] Kinza Ferrer, Miguelina Morales RN, RN RN db Brown, Sophia, PA-C PA-C sb4 Rose Marie Wang PAS PAS ts1
--- NOTE | 2025-06-20 11:58 | EDPHYS ---
Physician Documentation [facility] Name: Elsa Dash Age: 44 yrs Sex: Female : 1980 Arrival Date: 06/20/2025 Time: 09:28 Bed 19 Private MD: ED Physician Anthony Scott HPI: 06/20 10:00 This 44 yrs old Female presents to ER via Ambulatory with complaints of Abdominal Pain. sb4 10:00 Patient reports upper abdominal pain that began yesterday afternoon. She states that sb4 since then, it has slowly moved down her abdomen and radiates around to her back. She states that it feels like a "pulling "pain and intensifies intermittently. Denies any nausea, vomiting, diarrhea, fever, chills, urinary symptoms. Historical: - Allergies: 09:41 No Known Allergies; iw - PMHx: :41 Anxiety; Hypertension; GERD; iw - Immunization history:: Adult Immunizations unknown. - Infectious Disease History:: Denies. - Social history:: Smoking status: unknown. ROS: 10:00 Constitutional: Negative for fever, chills, and weight loss, sb4 10:00 Abdomen/GI: Positive for abdominal pain, 10:00 All other systems are negative, Exam: 10:00 Head/Face: Normocephalic, atraumatic. Eyes: Extra-ocular motions intact. Periorbital sb4 areas with no swelling, redness, or edema. ENT: Mucous membranes moist. Cardiovascular: Regular rate and rhythm with a normal S1 and S2. Respiratory: No increased work of breathing, no retractions or nasal flaring. Abdomen/GI: Soft, non-tender, no distension. Skin: Warm, dry with normal turgor. Normal color with no rashes, no lesions, and no evidence of cellulitis. 10:00 Constitutional: The patient appears alert, awake, uncomfortable, Vital Signs: 09:40 Pulse 81; Resp 18; Pulse Ox 96% on R/A; iw 10:30 BP 197 / 101; Pulse 81; Resp 16; Temp 98; Pulse Ox 98% ; db 11:40 BP 171 / 101; Pulse 87; Resp 16; Pulse Ox 97% on R/A; db 12:00 BP 164 / 95; Pulse 86; Resp 16; Pulse Ox 95% ; db MDM: 09:35 Medical Screening Exam initiated sb4 10:02 Differential diagnosis: cholecystitis, Cholelithiasis, diverticulitis, gastritis, sb4 gastroesophageal reflux disease, non-specific abd pain, pancreatitis, Peptic Ulcer Disease, urinary tract infection. 12:14 Data reviewed: vital signs, nurses notes, lab test result(s), radiologic studies, I sb4 have discussed the patient's presentation/case with the attending Emergency Department Physician; and as a result, I will discharge patient. Care significantly affected by the following chronic conditions: Hypertension, Obesity. Counseling: I had a detailed discussion with the patient and/or guardian regarding the historical points, exam findings, and any diagnostic results supporting the discharge/admit diagnosis, lab results, radiology results, the need for outpatient follow up, a partner alliance manager, to return to the emergency department if symptoms worsen or persist or if there are any questions or concerns that arise at home. Special discussion: Based on the patient's Hx, exam, and Dx evaluation, there is no indication for emergent surgery or inpatient Tx. It is understood by the patient/guardian that if the Sx's persist or worsen they need to return immediately for re-evaluation. 06/20 09:42 Order name: CBC with Diff; Complete Time: 12:04 sb4 06/20 09:42 Order name: CMP; Complete Time: 10:31 sb4 06/20 09:42 Order name: Lipase; Complete Time: 10:31 sb4 06/20 09:42 Order name: Test, Urine; Complete Time: 10:42 sb4 06/20 09:42 Order name: UA Rfx Keshav Cult if indicated; Complete Time: 10:42 sb4 06/20 09:44 Order name: Test, Serum; Complete Time: 10:22 db 06/20 10:49 Order name: CBC Smear Scan; Complete Time: 12:04 EDMS 06/20 12:03 Order name: Manual Differential; Complete Time: 12:04 EDMS 06/20 09:42 Order name: CT Abd/Pelvis - IV Contrast Only; Complete Time: 11:23 sb4 06/20 09:42 Order name: IV Saline Lock; Complete Time: 10:32 sb4 06/20 09:42 Order name: Labs collected and sent; Complete Time: 10:32 sb4 06/20 11:24 Order name: PO challenge; Complete Time: 11:55 sb4 Administered Medications: 10:15 Drug: Ondansetron IVP 4 mg IVP once; over 2 minutes Route: IVP; Site: left antecubital; db 12:15 Follow up: Response: No adverse reaction db 10:15 Drug: morphine IVP or IV 4 mg IVP once over 4 mins Route: IVP; Infused Over: 4 mins; db Site: left antecubital; 12:15 Follow up: Response: No adverse reaction db 10:15 Drug: NS 0.9% IV 1000 ml IV at 1 bolus Per protocol; to be given as a bolus over 60 db minutes Route: IV; Rate: 1 bolus; Site: left antecubital; 12:15 Follow up: Response: No adverse reaction; IV Status: Completed infusion; IV Intake: db 1000ml Disposition Summary: 06/20/25 11:57 Discharge Ordered Notes: Location: Home sb4 Problem: new sb4 Symptoms: have improved sb4 Condition: Stable sb4 Diagnosis - Upper abdominal pain, unspecified sb4 Followup: sb4 - With: Vitaliy Montes MD - When: As needed - Reason: Recheck today's complaints, Re-evaluation by your physician Discharge Instructions: - Discharge Summary Sheet sb4 - Abdominal Pain, Adult sb4 - Pain Without a Known Cause sb4 - Fatty Liver Disease sb4 - Peptic Ulcer, [id number] sb4 Forms: - Patient Portal Instructions sb4 - Leadership Thank You Letter sb4 Signatures: Dispatcher [employer] Kinza Ferrer, Miguelina Morales RN, RN RN db Brown, Sophia, PA-C PA-C sb4
[2025-06-20 12:01] LABS: Differential Total Cells Count 100; Segmented Neutrophils 56 % (40-80); Toxic Granulation NOTED; White Blood Cell Scan DIFF (OK)
[2025-06-20 12:02] LABS: Anisocytosis SLIGHT; Blood Morphology Comment NOTED (NOT SEEN); Smudge Cells NOTED
[2025-06-20 12:03] LABS: Stomatocytes 1+
[2025-06-20 12:23] VITALS: TEMP 98
[2025-06-20 12:25] VITALS: BP 164/95; O2SAT 95
== END 2025-06-20 12:15 | disposition home or self-care (01) ==
LOC: ER 09:28
DX: R10.10 Upper abdominal pain, unspecified (principal)
CPT/HCPCS: 96361; 85025; 81001; 36415; 84703; 81025; 83690; 80053; 74177; 96375; 96374; 99284; Q9967; J2405; J7030